=== PATIENT | male | born 1945 | race Caucasian/White ===

== ENCOUNTER 2025-02-22 15:46 | Emergency (ER) | payer MEDICARE, OTHER ==
[~2025-02-22] VITALS: Ht 177.8 cm; Wt 69.4 kg
[2025-02-22 16:02] VITALS: BP 121/69; PULSE 60; RESP 18; O2SAT 99
--- NOTE | 2025-02-22 16:13 | Physician Documentation ---
History of Present Illness ~ Chief Complaint: Laceration Stated Complaint: FALL, ARM LAC Time Seen by MD: 16:35 OK to notify your PCP?: Yes Source: patient Mode of Arrival: POV Exam Limitations: no limitations HPI 79-year-old male presents with skin tear to right outer forearm after slipping and falling. He has full range motion of the right arm and denies any head strike, loss of consciousness or blood thinner use. He did spray some sort of white blood. Powder on it which does not appear to be working as it is still bleeding, but is controlled with bandage. Denies any other injuries from this fall. He has received a tetanus vaccine within the past 5 years. Tetanus Within 5 Years: No (out of date per pt) Medication Reconciliation Allergies: Coded Allergies: No Known Allergies (Unverified , 02/10/13) Past Medical History Past Medical History: High Cholesterol, Hypertension, Myocardial Infarction Other Past Surgical History: stent placement surgery Alcohol Use: Occasionally Review of Systems All Other Systems at this time: Reviewed and Negative Physical Exam Vital Signs: RN Vital Signs have been reviewed: Yes Pulse Oximetry Reflects: adequate oxygenation Physical Exam General: Alert, no distress. HEENT: No injection, moist mucous membranes. Neck: Full range of motion. Respiratory: No respiratory distress, equal chest rise and fall. Chest: No accessory muscle use. Cardiovascular: Regular rate and rhythm. Gastrointestinal: Nondistended. Extremities: Normal range of motion, no deformity. Neurologic: Oriented x4. Psychiatric: Normal mood and affect. Skin: 3 superficial skin tears to right forearm, bleeding controlled. Procedures Laceration/Wound Repair Laceration : Location: Right forearm Length (cm): 2 Prep: irrigated by nurse Debrided: minimal Undermining: none Margins: flaps aligned Foreign Body: not identified Repaired: skin Wound Repaired With: Steri-strips Layer Closure?: No Dressing Applied: simple, non-adherent Sling Applied?: No Tolerated Procedure Well?: yes, no complications Procedure Note Repaired 2 of the 3 small skin tears by replacing the skin to its original location and placing Steri-Strips. Patient tolerated well. Progress Results/Orders Reviewed/noted all lab results: Yes Results/Orders Vital Signs 02/22/25 02/22/25 16:02 18:03 Temp 97.4 97.4 Pulse 60 Resp 18 B/P (MAP) 121/69 Pulse Ox 99 O2 Flow Rate 0 Medical Decision Making Findings He experienced tripping and falling and has 3 small skin tears to his right forearm. I was able to pull the skin back over onto of those in the apply Steri-Strips to assist with healing. The 3rd 1 the skin was partially missing and it was unable to fully pull the skin over. No signs of infection. We discussed looking for signs or symptoms of infection as he may need to be placed on an antibiotic. He does not have any injuries from this fall and has full range motion of all extremities. He is given discharge instructions as well as follow up instructions. Differential Dx:Considerations: Include: Laceration, Fracture, Neurovascular injury, Retained foreign body Departure Disposition: 01 HOME / SELF CARE / HOMELESS Impression: Primary Impression: Skin tear of right forearm without complication Condition: Stable Discharge Instructions: Skin Tear, [id number] Additional Instructions: As discussed please do not put any ointments or creams onto the Steri-Strips as this will cause them to lift earlier. You are okay to shower and bathe with them on. They typically fall off in about 5 days. Do not pick at them if they start to lift. Monitor wound for signs of infection such as increased redness, increased pain, redness spreading up the arm or pus-like discharge from the site. If any of these occur, you may need an antibiotic so please return immediately. Follow up with her primary care provider within the next week and return back here for any new or worsening symptoms. Referrals: NO PRIMARY CARE PROVIDER (PCP) Education Educated: Patient Educated regarding: diagnosis, treatment, prognosis, need for follow up Additional Comment Medical Screen Exam This patient recieved a medical screening examination. After reviewing the individual's medical complaints with presenting symptoms and performing an appropriate physical examination, it was determined that no immediate life- threatening emergency medical condition is present. This individual is also not a women having contractions. Signature Scribe Signature: . Attestation: Scribed for Angle Garcia [employer] Chair by Angle Dunlap NP . 02/22/25 22:28 Parts of this note were created using [employer] voice recognition software program. While efforts were made to correct any mistakes made by this voice recognition software program, nonsensical phrases may remain in this note. In addition, there may be errors and syntax, grammar, content and spelling. ANGLE GARCIA IRA [facility] Feb 22, 2025 16:13
[2025-02-22 18:03] VITALS: TEMP 97.4
== END 2025-02-22 18:05 | disposition home or self-care (01) ==
LOC: ER 15:47
DX: S51.811A Laceration without foreign body of right forearm, initial encounter (principal); E78.00 Pure hypercholesterolemia, unspecified; I10 Essential (primary) hypertension; I25.2 Old myocardial infarction; W01.10XA Fall on same level from slipping, tripping and stumbling with subsequent striking against unspecified object, initial encounter; Y93.89 Activity, other specified; Y92.89 Other specified places as the place of occurrence of the external cause; Y99.8 Other external cause status
CPT/HCPCS: 99284; A6258; A6449